=== PATIENT | male | born 1975 | race Caucasian/White ===

== ENCOUNTER 2017-08-19 21:52 | Inpatient (IN) | payer BC, OTHER ==
[~2017-08-19] VITALS: Ht 182.9 cm; Wt 90.7 kg
[2017-08-19] MEDS ORDERED: DICYCLOMINE HCL 20 MG TABLET PO PRN (22:30)
[2017-08-19] MEDS ORDERED: LORAZEPAM 1 MG TABLET PO PRN ×2 (22:30)
[2017-08-19] MEDS ORDERED: ONDANSETRON ODT 4 MG TAB.RAPDIS SL PRN (22:30)
[2017-08-19] MEDS ORDERED: ACETAMINOPHEN 325 MG TABLET PO PRN (22:30)
[2017-08-19] MEDS ORDERED: ONDANSETRON 4 MG/2 ML VIAL IM PRN (22:30)
[2017-08-19] MEDS ORDERED: diphenhydrAMINE 50 MG CAPSULE PO PRN (22:30)
[2017-08-19] MEDS ORDERED: MAGNESIUM HYDROXIDE 30 ML LIQUID UDC PO PRN (22:30)
[2017-08-19] MEDS ORDERED: LOPERAMIDE HCL 2 MG CAPSULE PO PRN ×2 (22:30)
[2017-08-19] MEDS ORDERED: BUPRENORPHINE HCL 2 MG TAB.SUBL SL PRN ×2 (22:30)
[2017-08-19] MEDS ORDERED: MAG HYDROX/AL HYDROX/SIMETH 30 ML LIQUID UDC PO PRN (22:30)
[2017-08-19] MEDS ORDERED: METHOCARBAMOL 750 MG TABLET PO PRN (22:30)
[2017-08-19] MEDS ORDERED: LORAZEPAM 2 MG/1 ML VIAL IM PRN (22:30)
[2017-08-19] MEDS ORDERED: MIRALAX 17 GM POWD.PACK PO PRN (22:30)
[2017-08-19] MEDS ORDERED: IBUPROFEN 600 MG TABLET PO PRN (22:30)
[2017-08-19] MEDS ORDERED: CLONIDINE HCL 0.1 MG TABLET PO PRN (22:30)
--- NOTE | 2017-08-19 22:40 | NUR ---
PRE ADMISSION NOTE Pt is a 41 y/o male seek at intake, A&Ox4 and presents with anxiety, lethargy, depressed affect, pain in testicles 8/10, increased HR, agitation, sweats, flushed skin, disheveled appearance, body odor, slumped posture and poor contact. Pt is ambulatory with steady gait. Vital signs: BP 132/83, HR 88, T 98.2, 02 100%, RR 18, Pain 8/10. Pt denies allergies to food or medications and denies seizure history. Pt brought home medications. Educated pt rules and policies of the unit including handling of contraband and taking vital signs Q4H. Will continue care of patient upon arrival.
[2017-08-19 22:55] LABS: BASOPHILS % (AUTO) 0.8 % (0.0-2.0); EOSINOPHILS # (AUTO) 0.1 K/uL (0.0-0.7); EOSINOPHILS % (AUTO) 1.6 % (0.0-7.0); HEMATOCRIT 34.9 % (36.7-47.1); HEMOGLOBIN 12.4 g/dL (12.5-16.3); LYMPHOCYTES # (AUTO) 1.2 K/uL (20.0-40.0); LYMPHOCYTES % (AUTO) 24.5 % (20.5-51.5); MEAN CORPUSCULAR HEMOGLOBIN 34.1 uug (23.8-33.4); MEAN CORPUSCULAR HGB CONC 36 g/dL (32.5-36.3); MEAN CORPUSCULAR VOLUME 96.1 fL (73.0-96.2); MONOCYTES # (AUTO) 0.7 K/uL (2.0-10.0); NEUTROPHILS # (AUTO) 2.9 K/uL (1.8-8.9); NEUTROPHILS % (AUTO) 58.1 % (38.5-71.5); PLATELET COUNT (AUTO) 270 K/uL (152-348); RED BLOOD CELL COUNT(AUTO) 3.63 MIL/uL (4.06-5.63); WHITE BLOOD COUNT (AUTO) 4.9 K/uL (3.6-10.2)
--- NOTE | 2017-08-19 23:00 | NUR ---
ADMISSION NOTE Pt arrived on unit at 2300 for medically supervised withdrawal from ETOH. Skin and body check completed, skin intact and no contraband found. Pt provided UDS and labs. Pt is 6'0 and weighs 200 lbs. Pt presents anxiety, lethargy, depressed affect, pain in testicles 8/10, increased HR, agitation, sweats, flushed skin, disheveled appearance, body odor, slumped posture and poor contact. Pt is ambulatory with steady gait. PEERLA. Respirations even and unlabored, lung sounds clear in all 4 quadrants. Last BM today. Vital signs: BP 132/83, HR 88, T 98.2, 02 100%, RR 18, Pain 8/10. Pt flew in from [place] today. Pt reports he was at [facility] in [place] for 3.5 days prior to arrival d/t vasectomy reversal surgical complication. Pt got vasectomy reversal surgery on August 07, 2017. Pt reports his sutured sites opened twice and he was diagnosed with sepsis. Pt has two open lacerations on testicles, one 6 cm in length and the other 3 cm in length and has surrounding bruising in lower abdomen and hip areas. Pt received antibiotics and states he went through ETOH withdrawal while at the hospital. Pt reports he received Librium, Ativan, Morphine and Percocet during his hospital stay. Substance Use History: 1. Vodka 20 shots daily, last intake of 20 shots on 08/13/17, at this rate for 2.5 years. Pt reports he typically gets the following S/S of withdrawal: Tremors, sweats, restlessness, anxiety, nausea, chills. Pt is full code, NKA, regular diet and on fall/seizure precautions. Denies seizure hx. Pt reports PMH of vasectomy, vasectomy reversal, left heel surgical repair and right ulnar nerve surgery. Pt is a candidate for MRSA d/t being hospitalized in past 30 days, MRSA swab collected. Denies smoking cigarettes and denies having a PCP. Pt refuses pneumonia vaccine. Pt reports his brother has hx of heroin overdose and his father has PMH of [place]. Pt reports his longest period of sobriety was 3 weeks, 1.5 years ago. This is patients first detox/ treatment facility. Pt reports he has difficulty maintaining sobriety d/t difficulty coping with negative emotions. Pt is motivated to become sober for his fianc and states, "I need to get sober for my family." Pt states he lives with his fianc in [place] and works in real estate. Oriented pt to room and unit, educated pt about rules and expectations of unit and how to use call light. Pt verbalized understanding. Safety measures in place. Call light within reach. Will continue to monitor.
[2017-08-19 23:01] LABS: ALANINE AMINOTRANSFERASE 50 U/L (16-63); ALKALINE PHOSPHATASE 66 U/L (50-136); AMYLASE 84 U/L (25-115); ASPARTATE AMINOTRANSFERASE 38 U/L (15-37); BILIRUBIN,TOTAL 0.6 mg/dL (0.2-1.0); CARBON DIOXIDE 29 mmol/L (21-32); CHLORIDE 98 mmol/L (98-107); CREATININE 0.9 mg/dL (0.6-1.3); GLUCOSE 105 mg/dL (74-106); MAGNESIUM 1.7 mg/dL (1.8-2.4); POTASSIUM 3.3 mmol/L (3.5-5.1); UREA NITROGEN, BLOOD 10 mg/dL (7-18)
[2017-08-19 23:08] LABS: *AMPHETAMINE, URINE NEGATIVE (NEGATIVE); *BARBITURATE, URINE NEGATIVE (NEGATIVE); *CANNABINOID, URINE NEGATIVE (NEGATIVE); *COCCAINE, URINE NEGATIVE (NEGATIVE); *OPIATE, URINE NEGATIVE (NEGATIVE); *PHENCYCLIDINE SCREEN,URINE NEGATIVE (NEGATIVE)
[2017-08-19 23:09] LABS: ETHANOL < 3 MG/DL (0-0)
[2017-08-19] MEDS ORDERED: LORAZEPAM 1 MG TABLET PO SCH (23:30)
[2017-08-19] MEDS: KETOROLAC TROMETHAMINE 30 MG INJ IM PRN (23:46)
--- NOTE | 2017-08-19 23:46 | NUR ---
PRN TORADOL ADMINISTRATION Pt reports pain in testicles 12/13 r/t recent surgical procedure. Pt appears uncomfortable. Safety measures in place. Call light within reach. Will continue to monitor.
[2017-08-19 23:54] LABS: BAND % (MANUAL) 4 % (0-10); LYMPHOCYTES % (MANUAL) 23 % (20-40); METAMYELOCYTES % 1 % (0-1); MONOCYTES % (MANUAL) 9 % (2-10); MYELOCYTES % 2 % (0-0); NEUTROPHILS % (MANUAL) 58 % (42-75)
[2017-08-20] VITALS: BP 127/91
--- NOTE | 2017-08-20 00:16 | NUR ---
PRN TORADOL REASSESSMENT Pt reports pain decreased to 6/10, encouraged nonpharmacological pain relief methods. Safety measures in place. Call light within reach. Will continue to monitor.
[2017-08-20] MEDS ORDERED: NEOM28OI12 TP (00:42)
[2017-08-20] MEDS ORDERED: [UNRECOGNIZED DRUG - CODE] TP (00:42)
[2017-08-20] MEDS ORDERED: [UNRECOGNIZED DRUG - CODE] TP (00:42)
[2017-08-20 04:00] VITALS: BP 129/87
--- NOTE | 2017-08-20 04:00 | NUR ---
COWS/CIWA DEFERRED Pt laying in bed with eyes closed, COWS/CIWA deferred, to be assessed when pt is awake per orders. Respirations even and unlabored. Safety measures in place. Call light within reach. Will continue to monitor.
--- NOTE | 2017-08-20 07:26 | NUR ---
START OF SHIFT PT IS A 41 Y/O M ADMITTED YESTERDAY 08/19/17 FOR MEDICALLY SUPERVISED ETOH AND OPIATE WITHDRAWAL. PT IS STARTED ON A 4 DAY ATIVAN TAPER AND IS ON SUBUTEX PRN; TOLERATING WELL. PT HAS TWO SUTURE AREAS THAT OPENED ON THE TESTICULAR AREA RESULTED AFTER HAVING A VASECTOMY REVERSAL ON 08/07/17; AREA IS COVERED WITH BANDAGES WITH MINIMAL DRAINAGE NOTED. PT HAS BRUISING SURROUNDING HIPS AND LOWER ABD. PT PRESENTS ANXIETY, AGITATION, FACIAL FLUSHING, DIAPHORESIS. LAST COWS 4 AND CIWA 6 @MN. PT HAS BEEN GIVEN TORADOL IM PRN LAST NIGHT. ENCOURAGED PT TO INCREASE FLUIDS FOR HYDRATION AND TO FACILITATE IN DETOX. SIDE RAILS UPX2 AND PADDED, BED IN LOW POSITION. CALL LIGHT WITHIN REACH. SAFETY MEASURES IN PLACE. WILL CONTINUE TO MONITOR AND PROVIDE SUPPORT.
--- NOTE | 2017-08-20 07:26 | NUR ---
END OF SHIFT Pt is a 41 y/o male admitted on 08/19/17 for ETOH withdrawal. No scheduled taper at this time. Pt reports he was at [facility] in [place] for 3.5 days prior to arrival d/t vasectomy reversal surgical complication. Pt got vasectomy reversal surgery on August 07, 2017. Pt reports his sutured sites opened twice and he was diagnosed with sepsis. Pt has two open lacerations on testicles, one 6 cm in length and the other 3 cm in length and has surrounding bruising in lower abdomen and hip areas. Wounds cleaned and covered with bandages. Pt received antibiotics and states he went through ETOH withdrawal while at the hospital. Pt reports he received Librium, Ativan, Morphine and Percocet during his hospital stay. Pt presented with anxiety, lethargy, depressed affect, pain in testicles 8/10, increased HR, agitation, sweats, flushed skin, disheveled appearance, body odor, slumped posture and poor contact. Scheduled Ativan 2 mg and PRN Toradol inj administered, effective in S/S of withdrawal as verbalized by pt. last COWS 4 and CIWA 6. Pt slept 7 hours. Intake 600 ml, void x 1, stool x 0. Safety measures in place. Call light within reach. Pts needs have been met. Endorsed to day shift nurse.
[2017-08-20 08:00] VITALS: BP 94/57
[2017-08-20] MEDS: FOLIC ACID 1 MG TABLET PO SCH (08:58)
[2017-08-20] MEDS: MULTIVITAMINS,THERAPEUTIC TABLET PO SCH (08:58)
[2017-08-20] MEDS: LORAZEPAM 1 MG TABLET PO SCH ×3 (08:58→20:47)
[2017-08-20] MEDS: THIAMINE HCL 100 MG TABLET PO SCH (08:58)
[2017-08-20] MEDS: KETOROLAC TROMETHAMINE 30 MG INJ IM PRN (08:59)
[2017-08-20] MEDS ORDERED: PAIN RELIEF TOP PRN (09:00)
[2017-08-20] MEDS ORDERED: POTASSIUM CHLORIDE 20 MEQ TAB.PRT.SR PO ONE (09:00)
[2017-08-20] MEDS ORDERED: TUBERCULIN,PURIF.PROT.DERIV. 5 TU/0.1 ML TEST ID ONE (09:00)
[2017-08-20] MEDS ORDERED: [UNRECOGNIZED DRUG - SUPPLY] TOP PRN (09:00)
[2017-08-20] MEDS ORDERED: ANTIBIOTIC TOP PRN (09:00)
[2017-08-20] MEDS ORDERED: PATIENT MAY USE OWN MED- MD OK TOP PRN (09:00)
[2017-08-20] MEDS ORDERED: MAGNESIUM OXIDE 400 MG TABLET PO ONE (09:00)
[2017-08-20 12:23] VITALS: BP 137/98
--- NOTE | 2017-08-20 14:25 | NUR ---
WOUND CLEANSED WITH NS, TRIPLE ABX OINTMENT APPLIED AND COVERED WITH BANDAGE. DRESSING DRY AND INTACT. SAFETY MEASURES IN PLACE.
--- NOTE | 2017-08-20 14:30 | NUR ---
WOUND CARE CONSULT: PT RESTING AT THIS TIME. DEFER TO MD AT THIS TIME FOR S/P VASECTOMY REVERSAL. PER SNAG GRINDER, UROLOGIST TO SEE PT TODAY. WILL SEE PRN.
[2017-08-20 16:00] VITALS: BP 139/87
[2017-08-20] MEDS: CITALOPRAM 20 MG TABLET PO SCH (17:23)
[2017-08-20] MEDS ORDERED: IBUPROFEN 400 MG TABLET PO PRN (18:00)
--- NOTE | 2017-08-20 18:43 | NUR ---
END OF SHIFT LAST COWS 6, CIWA 8. WOUND CARE CONSULT DEFERRED CARE TO UROLOGIST. UA, URINE C+S, PT/PTT, CIPRO ABX, US SCROTUM AND CONTENTS, AND ICE PACK TO SCROTAL AREA ORDERS HAVE BEEN MADE BY UROLOGIST. PT HAS BEEN ISOLATIVE IN ROOM DURING SHIFT. PT IS ON A 4 DAY MODIFIED ATIVAN TAPER AND TOLERATING WELL. PT HAS BEEN GIVEN TORADOL IM PRN. PT HAS BEEN COMPLIANT WITH MED REGIMEN AND TX PLAN. SAFETY MEASURES IN PLACE. WILL GIVE ENDORSEMENT TO RESTAURANT ASSISTANT MANAGER.
--- NOTE | 2017-08-20 19:30 | NUR ---
Start of Shift Note Received a 41 y/o male px, admitted for medically supervised withdrawals from ETOH. Px was placed 5 day Ativan taper, started yesterday 08/19/2017. Px is tolerating it. Last reported COWS 2 and CIWA 8 by AM shift nurse. During the rounds at 1930, px is awake on bed in fowlers position. Px appears unshaven and disheveled. Px has good eye contact. Room is odorous. Some snacks and drinks noted on top of the bedside table. Px stated that his anxiety is 1/10 and pain of 4/10 concentrated in perineum area. Px also wanted Tylenol for his 4/10 H/A. Bed in lowest position, side rails up 2x and call light within reach. We'll continue to monitor.
[2017-08-20 20:00] VITALS: BP 140/101
[2017-08-20] MEDS: CIPROFLOXACIN HCL 250 MG TABLET PO SCH (20:47)
--- NOTE | 2017-08-20 20:48 | NUR ---
PRN meds Px received Clonidine 0.1 mg/tab, 1 tab PO for BP= 140/101 and Tylenol 325 mg/tab, 2 tabs PO for H/A of /10. We'll continue to monitor.
[2017-08-20 20:58] LABS: *BILIRUBIN,URIN NEGATIVE (NEGATIVE); *BLOOD, URINE NEGATIVE (NEGATIVE); *CLARITY,URINE CLEAR (CLEAR); *COLOR,URINE YELLOW (YELLOW); *KETONES,URINE NEGATIVE (NEGATIVE); *PROTEIN,URINE NEGATIVE (NEGATIVE); *UROBILINOGEN,URINE 0.2 E.U./dl (NORMAL); LEUKOCYTE ESTERASE ,URINE NEGATIVE (NEGATIVE); NITRITE, URINE NEGATIVE (NEGATIVE); PH,URINE 6.5 (5.0-8.0); UGLUCOSE NEGATIVE (NEGATIVE)
[2017-08-20 21:06] LABS: BACTERIA,URINE NONE SEEN /HPF (NONE SEEN); MUCUS,URINE FEW /LPF (0-FEW); RBC,URINE 0-3 /HPF (0-3); SQUAMOUS EPITHELIAL CELL,UR FEW /HPF (NONE SEEN); WBC,URINE 0-3 /HPF (0-3)
--- NOTE | 2017-08-20 21:50 | NUR ---
Reassessment of BP and H/A Px's BP= 125/84 as of the moment. Px stated that his H/A improved to 1-2/10 from 08/13. We'll continue to monitor.
[2017-08-21] VITALS: BP 120/81
[2017-08-21 04:00] VITALS: BP 123/78
--- NOTE | 2017-08-21 04:00 | NUR ---
CIWA deferred CIWA deferred at 0000 and 0400 due to the px is asleep, to assess if the px is awake per doctor's order. We'll continue to monitor.
[2017-08-21 06:06] LABS: HEPATITIS B SURFACE AG Negative (Negative)
--- NOTE | 2017-08-21 07:05 | NUR ---
End of Shift Note Px is scheduled for NIKKI of scrotum and contents this morning, 08/21/2017. During the shift at 2048, px received Clonidine 0.1 mg PO for BP= 140/101 and Tylenol 650 mg PO for H/A of 4/10. BP= 123/78 at 0400. H/A improved to 1-2/10. Px's oral intake is 600 ml, voided 2x, No BM. Px slept for 8 hours. At 0630, px is asleep on bed in fowlers position. Last CIWA 6. Bed in lowest position, side rails up 2x and call light within reach. We'll continue to monitor. Px endorsed to AM shift nurse.
--- NOTE | 2017-08-21 07:25 | NUR ---
START OF SHIFT PT IS A 41 Y/O M ADMITTED ON 08/19/17 FOR MEDICALLY SUPERVISED ETOH WITHDRAWAL. PT IS STARTED ON A 4 DAY ATIVAN TAPER AND IS TOLERATING WELL. PT HAS SWELLING OF THE SCROTUM AND HAS TWO OPEN AREAS WITH DRAINAGE; AREA IS COVERED WITH GAUZE. PT HAS BRUISING SURROUNDING HIPS AND LOWER ABD. PT PRESENTS ANXIETY, AGITATION, FACIAL FLUSHING, DIAPHORESIS. LAST CIWA 6 AND PT HAS BEEN GIVEN TYLENOL, CLONIDINE PRN LAST NIGHT. ENCOURAGED PT TO INCREASE FLUIDS FOR HYDRATION AND TO FACILITATE IN DETOX. SIDE RAILS UPX2 AND PADDED, BED IN LOW POSITION. CALL LIGHT WITHIN REACH. SAFETY MEASURES IN PLACE. WILL CONTINUE TO MONITOR AND PROVIDE SUPPORT.
[2017-08-21 08:00] VITALS: BP 137/86
[2017-08-21] MEDS ORDERED: LORAZEPAM 1 MG TABLET PO SCH ×2 (09:00→21:00)
[2017-08-21] MEDS: MULTIVITAMINS,THERAPEUTIC TABLET PO SCH (09:26)
[2017-08-21] MEDS: THIAMINE HCL 100 MG TABLET PO SCH (09:26)
[2017-08-21] MEDS: CITALOPRAM 20 MG TABLET PO SCH (09:26)
[2017-08-21] MEDS: FOLIC ACID 1 MG TABLET PO SCH (09:26)
[2017-08-21] MEDS: CIPROFLOXACIN HCL 250 MG TABLET PO SCH ×2 (09:26→20:08)
[2017-08-21 12:23] VITALS: BP_SYST 135; BP_SYST 140; BP_DIAS 87; BP_DIAS 92
[2017-08-21] MEDS ORDERED: IBUP-1955 PO (12:49)
[2017-08-21] MEDS ORDERED: CITA20TA19 PO (12:49)
[2017-08-21] MEDS ORDERED: CLON0.1T14 PO (12:49)
[2017-08-21] MEDS ORDERED: CIPR250T4 PO (12:49)
[2017-08-21] MEDS ORDERED: METH-406 PO (12:49)
[2017-08-21] MEDS ORDERED: DIPH50CA37 PO (12:49)
[2017-08-21] MEDS: LORAZEPAM 1 MG TABLET PO SCH ×2 (13:18→16:57)
[2017-08-21 16:38] VITALS: BP 137/80
--- NOTE | 2017-08-21 17:10 | NUR ---
UROLOGIST CONSULT: INCISIONS ON SCROTUM CLOSED WITH STERI-STRIPS. EXTRA STERI-STRIPS GIVEN TO PT BY . OPEN TO AIR. CARD AND INFO LEFT TO PT BY .
--- NOTE | 2017-08-21 19:30 | NUR ---
Start of Shift Note Received a 41 y/o male px, admitted for medically supervised withdrawals from ETOH. Px was placed on 5 day Ativan taper, started 08/19/2017. Px is tolerating it. Last reported COWS 5 and CIWA 9 by AM shift nurse. During the rounds at 1930, px is awake on bed in fowlers position. Px appears unshaven and disheveled. Room is odorous. Px stated that his anxiety is 1/10 and pain of 2/10 on scrotal area. Bed in lowest position, side rails up 2x and call light within reach. We'll continue to monitor
--- NOTE | 2017-08-21 19:39 | NUR ---
END OF SHIFT LAST COWS 5, CIWA 9. STERI-STRIPS ON SCROTUM, ICE PACK TO SCROTAL AREA ORDER PER UROLOGIST. PT HAS BEEN ISOLATIVE IN ROOM DURING SHIFT. PT IS ON A 4 DAY MODIFIED ATIVAN TAPER AND TOLERATING WELL NO PRNS GIVEN. PT HAS NOT ATTENDED GROUPS OR ACTIVITIES. SAFETY MEASURES IN PLACE. WILL GIVE ENDORSEMENT TO ENGLISH LANGUAGE ARTS TEACHER.
[2017-08-21 20:00] VITALS: BP 140/85
[2017-08-22] VITALS (7 sets, daily range): BP systolic 112–128; BP diastolic 73–88
--- NOTE | 2017-08-22 07:20 | NUR ---
End of Shift Note During the shift, no complaints received. No PRN medication given. Px's oral intake is 1 L, voided 2x, No BM. Px slept for 7 hours. At 0630, px is asleep on bed in fowlers position. Last CIWA 6. Bed in lowest position, side rails up 2x and call light within reach. We'll continue to monitor. Px endorsed to AM shift nurse.
--- NOTE | 2017-08-22 08:00 | NUR ---
START OF SHIFT Received endorsement from night court magistrate nurse. Client is resting in room. Client is A/O to person, place, time, and situation. Client denies any S/I or H/I. Client is on 4 day ativan taper (day 3). No PRN medications were given during previous shift. Client slept for 7 hrs. during the night. Last CIWA 6 @0400. Side rails raised and bed in lowest position. Call light within reach.
[2017-08-22] MEDS: CITALOPRAM 20 MG TABLET PO SCH (08:39)
[2017-08-22] MEDS: MULTIVITAMINS,THERAPEUTIC TABLET PO SCH (08:39)
[2017-08-22] MEDS: CIPROFLOXACIN HCL 250 MG TABLET PO SCH ×2 (08:39→20:18)
[2017-08-22] MEDS: THIAMINE HCL 100 MG TABLET PO SCH (08:39)
[2017-08-22] MEDS: FOLIC ACID 1 MG TABLET PO SCH (08:39)
[2017-08-22] MEDS: LORAZEPAM 1 MG TABLET PO SCH ×3 (08:39→20:18)
--- NOTE | 2017-08-22 14:20 | NUR ---
Dr. Handley stated, "It is okay to give 1500 & 2100 Ativan taper, even though client is being discharge tomorrow." DON made aware.
--- NOTE | 2017-08-22 18:42 | NUR ---
END OF SHIFT Endorsed client to incoming nurse. Client is in his room. Client is a/o to person, place, time, and situation. Client continues to present with an anxious mood and agitation (continually paces around the hallways). Client denies any s/s of pain. Client is on a 4 day Ativan taper for ETOH withdrawal. Clients v/s were monitored throughout the day. Client did not attend any group therapy sessions. Client consumed 75% of breakfast, 50% of lunch, and 50% of dinner. No PRN medications were given. Last CIWA 13 @ 1600. Client has call light within reach and will continue to be monitored.
--- NOTE | 2017-08-22 19:30 | NUR ---
Start of Shift Note Received a 41 y/o male px, admitted for medically supervised withdrawals from ETOH. Px was placed on 5 day Ativan taper, started 08/19/2017. Px is tolerating it. Last reported CIWA 13 by AM shift nurse. During the rounds at 1930, px is awake on bed in fowlers position. Px appears unshaven, disheveled and odorous. Px stated that his anxiety is 1/10 and pain of 2/10 on scrotal area. Ice pack is currently applied on perineum area. Bed in lowest position, side rails up 2x and call light within reach. We'll continue to monitor.
--- NOTE | 2017-08-22 23:05 | NUR ---
PRN Benadryl Px received Benadryl 50 mg/cap, 1 cap PO as PRN for insomnia. We'll continue to monitor.
[2017-08-23] VITALS: BP 128/82
[2017-08-23 04:00] VITALS: BP 118/74
--- NOTE | 2017-08-23 04:00 | NUR ---
CIWA deferred CIWA deferred at 0400 due to the px is asleep, to assess if the px is awake per doctor's order. We'll continue to monitor.
--- NOTE | 2017-08-23 07:15 | NUR ---
START OF SHIFT Rcvd endorse from ongoing nurse, client is in room, a/o x 4, he presents with anxious mood, flat affect. Client reports feeling anxious due to discharge this morning to [facility] to continue with his treatment. Client denies any suicidal/homicidal ideation. Client completed modified 4 day Ativan taper. Last CIWA 6 @ 1999. PRN Benadryl 50mg PO administered for inability to sleep, client slept 5 hrs. Call light within reach. Seizure precautions rendered.
--- NOTE | 2017-08-23 07:20 | NUR ---
End of Shift Note Px is to be D/C today, 08/23/2017. During the shift at 2305, Benadryl 50 mg PO given for insomnia, it was effective, px slept for 6 hours. Px's oral intake is 1600 ml, voided 3x, No BM. Px slept for 6 hours. At 0630, px is asleep on bed in fowlers position. Last CIWA 6. Bed in lowest position, side rails up 2x and call light within reach. We'll continue to monitor. Px endorsed to AM shift nurse.
[2017-08-23 08:00] VITALS: BP 110/68
[2017-08-23] MEDS: CIPROFLOXACIN HCL 250 MG TABLET PO SCH (08:00)
[2017-08-23] MEDS: FOLIC ACID 1 MG TABLET PO SCH (08:01)
[2017-08-23] MEDS: MULTIVITAMINS,THERAPEUTIC TABLET PO SCH (08:01)
[2017-08-23] MEDS: CITALOPRAM 20 MG TABLET PO SCH (08:01)
[2017-08-23] MEDS: THIAMINE HCL 100 MG TABLET PO SCH (08:01)
--- NOTE | 2017-08-23 08:07 | NUR ---
DISCHARGE NOTE Client discharged in stable condition with all valuable, belongings, prescriptions, and home meds. Client denies SI/HI. To [facility] via private car.
[2017-08-23] MEDS ORDERED: LORAZEPAM 1 MG TABLET PO SCH ×2 (09:00)
== END 2017-08-23 08:07 | disposition other institution (70) | DRG 897 ==
LOC: SRC 22:14
PROVIDERS: ADMIT Internal Medicine; ATTEND Internal Medicine
PROC: HZ2ZZZZ Detoxification Services for Substance Abuse Treatment (ICD-10-PCS; principal; 2017-08-19)
DX: F10.230 Alcohol dependence with withdrawal, uncomplicated (principal); F11.90 Opioid use, unspecified, uncomplicated; K70.9 Alcoholic liver disease, unspecified; E83.42 Hypomagnesemia; F33.1 Major depressive disorder, recurrent, moderate; N99.840 Postprocedural hematoma of a genitourinary system organ or structure following a genitourinary system procedure; F41.1 Generalized anxiety disorder; Z81.3 Family history of other psychoactive substance abuse and dependence; Y90.9 Presence of alcohol in blood, level not specified; Z82.49 Family history of ischemic heart disease and other diseases of the circulatory system; Z79.899 Other long term (current) drug therapy; E87.6 Hypokalemia; D53.9 Nutritional anemia, unspecified; F13.90 Sedative, hypnotic, or anxiolytic use, unspecified, uncomplicated
CPT/HCPCS: 36415; 76870; 80307; 80346; 83735; 85025; 85730; 86580; 86592; 86705; 86803; 87086; 87340; 87806; G0480; J1885; Q0163